=== PATIENT | female | born 1960 | race Hispanic/Latino ===

== ENCOUNTER 2022-03-29 09:38 | Inpatient (IN) | payer MEDICARE, MEDICAID ==
[~2022-03-29] VITALS: Ht 172.7 cm; Wt 97.7 kg
[2022-03-30] MEDS ORDERED: EUTHYROX112 MCG PO (15:25)
[2022-04-06] MEDS ORDERED: MULTI VITAMIN1 EACH PO (15:50)
--- NOTE | 2022-04-07 10:34 | NUR ---
PT TAKEN TO SURGERY, CONNECTED WITH FAMILY IN RM. WILL REMAIN FOR DC-GAVE ENCOURAGEMENT AND DIRECTIONS TO [place]. WILL FOLLOW
--- NOTE | 2022-04-07 12:15 | NUR ---
PT ARRIVED FROM PACU, IN BED. PT DROWSY BUT AROUSABLE TO VOICE, ANSWERS QUESTIONS APPROPRIATELY, SONS AT BEDSIDE AND ASSISTING WITH KYRGYZ TRANSLATION. PT ON 2L NC, CONTINUOUS PULSE OX IN PLACE, O2 SATS 97%, DENIES SOB. BOWEL TONES ACTIVE, DENIES NAUSEA, PROVIDED WITH WATER AND CLEAR LIQUID TRAY. PT DENIES PAIN. CMS INTACT, SPINAL RESOLVED. SCDS IN PLACE. PT WITH VAGINAL PACKING, SCANT AMOUNT OF BLOOD ON PERIPAD. JEAN CATH IN PLACE, DRAINING BRIGHT YELLOW URINE. VSS. IV FLUIDS STARTED LR AT 125ML/HR. PT DENIES OTHER NEEDS AT THIS TIME.
--- NOTE | 2022-04-07 12:29 | NUR ---
04/07/22 1229 Dayanna Wilkes 1127 PT ARRIVED IN PACU SLEEPY. 1130 INTERPRETOR USE TO TRANSLATE. C/O 7/10 RECTAL PAIN. ANESTHESIA GIVING IV TYLENOL. 1142 NO CHANGE IN PAIN LEVEL. FENTANYL 50MCG GIVEN IVP. 1150 TAKING SIPS OF WATER. 1200 PAIN DOWN TO 0/10. 1215 TO ROOM 107 WITH PT'S SONS. BED PLUGGED IN AND REPORT GIVEN TO RN.
--- NOTE | 2022-04-07 15:01 | NUR ---
PT RESTING IN BED. VSS. PT WITH SCANT VAGINAL BLEEDING, PERIPAD IN PLACE. PT DENIES NAUSEA BUT FEELS DIZZY AND SAID THE ROOM IS SPINNING A LITTLE. CALL PLACED TO DR. GARCES, RETURNED CALL AND NEW ORDER FOR SCOPALAMINE PATCH TO BE PLACED AND MECLAZINE 12.5MG PO Q6PRN FOR DIZZINESS.
--- NOTE | 2022-04-07 15:38 | NUR ---
SCOPOLAMINE PATCH AND MECLIZINE GIVEN PER ORDER. PT CONTINUES TO DENY PAIN OR NAUSEA. PT DENIES OTHER NEEDS AT THIS TIME. VSS.
--- NOTE | 2022-04-07 18:16 | NUR ---
PT ATE DINNER, TOLERATED WELL, DENIES NAUSEA. PT CONTINUES TO REPORT MILD DIZZINESS, STATES IT HAS IMPROVED FROM EARLIER BUT DOES NOT FEEL READY TO SIT AT EDGE OF BED, DISCUSSED WITH PT PLAN TO AT LEAST SIT THIS EVENING AND THEM TO AMBULATE IN AM, PT AGREEABLE. PT STATES PAIN IS MILD 2-3/10, GIVEN MOTRIN PER ORDER. PT DENIES OTHER NEEDS AT THIS TIME.
--- NOTE | 2022-04-07 20:24 | NUR ---
COMFORTABLE, FAMILY INROOM
--- NOTE | 2022-04-07 22:32 | NUR ---
RESTING, HOB ELEVATED, ON ROOM AIR, IVF INFUSING AT THIS TIME, F/C PATENT. SCANT AMOUNT OF VAG DRAINAGE PRESENT. VAG PACKING IN PLACE. SCDS IN PLACE FLUIDS AND CALL LIGHT AT BEDSIDE
--- NOTE | 2022-04-08 00:45 | NUR ---
On room air, no distress, IVf infusing. f/c patent
--- NOTE | 2022-04-08 02:16 | NUR ---
Coop with assessment, no c/o pain at thist anna, on room air, awakes easily, f/c patent, draining large amounts of clear urine. scant amount of red vaginal drainage. IVF infusign w/o problems. call light and fluids at bedside
--- NOTE | 2022-04-08 04:51 | NUR ---
Pt on room air, lungs clear, no distress. IVF infusing w/o problems. Scant amount of reddish vaginal discharge, jerad pad in place. vaginal pack in place. f/c patent draining large amount of yellow urine. Will ambulate and F/C to be dc'd this am as per orders. Pt aware of post void residual bladder scanning. procedure explained in Armenian, be stated understanding. Call light and fluids at bedside, no c/o pain or lightheadness this shift.
--- NOTE | 2022-04-08 06:34 | NUR ---
Pt was coop with vitals, was medicated with 2 [place] per vag pain, vag packing still in place, scant amount of reddish drainage. f/c patent. Up to edge of bed did ok, c/o feeling dizzy when walking to br, back to bed, dropped to bed with nurse holding on to pt. repositioned in bed, c/o feeling nauseated, had 500cc+ undigested food emesis plus on gown, was medicated with Zofran. skin cleansed, clean gown and bedding. new peripad in place. no pain meds noted on emesis. Pt declined Levothyroid med, stated that MD had ordered 150mcg and she was taking 125mcg but it was recently changed to 112mcg. Pt in be, hob elevated, ice chips and fluids at bedside, no further c/o lightheadness. alert and oriented, IVF infusing. f/c inplace, will not dc as per nursing judgement, will notify Dr Webber about above info.
--- NOTE | 2022-04-08 07:41 | NUR ---
pt hob elevated, room air, stated she feels better, no further c/o n/v or abd/vag pain. f/c patent. tolerating liquids again, ice chips, cranberry juice and fresh fluids at bedside. Pleasant, cooperative, Latvian speaking only.
--- NOTE | 2022-04-08 08:00 | NUR ---
Spoke with pt through language line interpreture. Pt lives alone in [place]. 4 adult children live near and will assist her. She does not have issues getting in or out of her home. She does not have or need any DME. Pt plans on dc to home, she states concern for her bill, discussed she can contact the hospital when she gets the bill to check if she qualifies for a reduction in cost. She denies financial issues at this time.
--- NOTE | 2022-04-08 08:00 | NUR ---
Spoke with pt through language line interpreture. Pt lives alone in [place]. 4 adult children live near and will assist her. She does not have issues getting in or out of her home. She does not have or need any DME. Pt plans on dc to home, she states concern for her bill, discussed she can contact the hospital when she gets the bill to check if she qualifies for a reduction in cost. She denies financial issues at this time.
--- NOTE | 2022-04-08 08:38 | NUR ---
THIS CNA2 REMOVED PT JEAN CATH @ 4622 PER RN ORDER. NO COMPLICATIONS, PT IS RESTING IN BED. CALL LIGHT IN REACH.
--- NOTE | 2022-04-08 09:14 | NUR ---
TO PT ROOM FOR MEDICATION ADMINISTRATION AND PT ASSESSMENT. INTERPRETTER LINE UTILIZED. CASE MANAGEMENT AT BEDSIDE. PT IS A/O, RESPIRATIONS EVEN AND REGULAR. DENINES PAIN ATT. REFUSED SYNTHROID 112MCG, STATES THAT NOC NURSE GAVE HER HOME MEDICATION THIS A.M.
--- NOTE | 2022-04-08 10:05 | NUR ---
ROUNDED ON PT. PT UP TO BATHROOM WITH PARTS INTERPRETER ASSISTANCE. FAMILY AT BEDSIDE.
--- NOTE | 2022-04-08 10:16 | NUR ---
PT CALLED FOR ASSISTANCE TO THE RESTROOM. PT FAMILY MEMBER IN ROOM TO TRANSLATE. PT STATED SHE FELT A LITTLE DIZZY WHEN SHE STOOD BUT ONLY FOR A MINUTE. SHE AMBULATED W/STBY ASSIST, STEADY ON HER FEET. PT HAD A SMALL VOID. RN BROUGHT BLADDER SCANNER IN FOR A PVR SO THIS CNA2 BLADDER SCANNED AND SHE STILL HAD 387ML IN. SHE STATED SHE DIDNT FEEL LIKE SHE HAD THE URGE TO GO MORE BUT WAS CURIOUS IF HER NOT BEING ABLE TO "SIT ALL THE WAY DOWN ON TOILET" WOULD BE THE PROBLEM. i TOLD HER WE COULD USE THE COMMODE INSTEAD AND SHE AGREED TO TRY THAT NEXT TIME SHE GOT UP TO VOID. PT RESTING IN BED W/FAMILY MEMBER AT BEDSIDE, CALL LIGHT IN REACH.
--- NOTE | 2022-04-08 11:50 | NUR ---
ROUNDED ON PT. PT IS A/O, RESPIRATIONS EVEN AND REGULAR. FAMILY AND PL SQL DEVELOPER AT BEDSIDE.
--- NOTE | 2022-04-08 12:59 | OR ---
[facility] [address] [facility] [place], [place] [address] Signed DATE OF OPERATION: 04/07/2022 SURGEON: Suzi Webber MD HAND COLLATOR: Jose Gómez MD PREOPERATIVE DIAGNOSES: Uterovaginal prolapse, stress incontinence. POSTOPERATIVE DIAGNOSES: Uterovaginal prolapse, stress incontinence. PROCEDURES: Total vaginal hysterectomy, anterior and posterior repair, sling procedure, cystoscopy. ANESTHESIA: Spinal with IV sedation. ESTIMATED BLOOD LOSS: 350 mL. DRAINS: Moses catheter. PACKS: Vaginal. INDICATIONS AND FINDINGS: The patient is a 62-year-old female, who has been having issues with increasing pelvic pressure as well as stress incontinence and desired surgical correction. At the time of surgery, her cervix presented just within the introitus. She had a grade 2 cystocele and a grade 2 rectocele. Her tubes and ovaries appeared normal. DESCRIPTION OF PROCEDURE: The patient was prepped and draped in the dorsal lithotomy position. A weighted speculum was placed and the anterior and posterior lips of the cervix were grasped with single-tooth tenaculum. The cervix was injected with 1% lidocaine with 1:200,000 epinephrine to a volume of 10 mL. The posterior cul-de-sac was then entered and the weighted speculum was switched for the [place] speculum which was placed into the Electronically Signed By: SUZI WEBBER MD 04/08/22 1259 PATIENT NAME: GLORIA PRINCE OPERATIVE REPORT DATE OF : 62 REPORT #: [id number] PHYSICIAN: SUZI WEBBER MD PCP: SASCHA BANKS REPORT IS CONFIDENTIAL AND NOT TO BE RELEASED WITHOUT AUTHORIZATION [facility] [address] [place], [place] [address] Signed posterior cul-de-sac. The uterosacral ligaments were grasped bilaterally using the curved Z clamps, divided with the Sandra scissors and suture ligated with 0 Vicryl. Following this, the vaginal mucosa was circumscribed around the cervix. Sharp dissection was used. Another bite was taken on each side with curved Z clamps, again divided and suture ligated with 0 Vicryl. The anterior cul-de-sac was then entered. Following this, serial bites were taken on each side taking care to incorporate both the anterior and posterior peritoneum on each. This took care of the uterine vessels and the lower aspects of both of the broad ligaments. Each of these were divided and suture ligated with 0 Vicryl. At this point, the remaining broad ligament pedicles could be clamped across. This was done, and specimen divided. These pedicles were tied with free tie of 0 Vicryl followed by suture ligature of 0 Vicryl. This retrieved the specimen. Both of the tubes and ovaries were identified on each side and the ovaries appeared normal, they were quite high and no attempt was made to remove these at this point. Following this, the cuff was inspected. There were multiple bleeding points from the posterior cul-de-sac as well as the anterior cul-de-sac and around the uterine vessels, particularly on the right side. These were controlled with [id number] sutures of 0 Vicryl. Finally, when good hemostasis was noted, the peritoneum was identified and it was closed with a running suture of 3-0 Vicryl. The cuff itself was closed with a running locking stitch of 0 Vicryl. Following this, the anterior repair and sling procedure was begun as the cystocele did not resolve with hysterectomy. The vaginal mucosa was scored in the midline with the knife. This was done from the mid urethra almost to the vaginal cuff. The vaginal mucosa was from the underlying tissue with a combination of blunt and sharp dissection. The dissection was carried out superiorly and laterally to behind the pubic rami on each side. Following this, the obturator notches were identified and the skin incised with a knife. The trocars for the sling were then placed. These were placed at the lowest, most medial point of the obturator notch and brought immediately behind the pubic rami into the upper corner of the vaginal incision. This was done bilaterally. Following this, cystoscopy was done using the 70-degree scope. There was no evidence of any incursion of the trocars into the bladder. She had received IV fluorescein as well so the ureters could be assessed. The left ureter was immediately visualized and seen to be egressing fluorescein stained urine. The right ureter took quite some time to visualize and to see free egress of the urine. This did require a change to the 30-degree scope. Following this, the bladder was drained and the Moses catheter replaced. The perivesical fascia was reapproximated in the midline with interrupted sutures of 0 Vicryl. The sling was then attached to the trocars and brought through the skin incisions. Care was taken to keep appropriate tension. At that point, the sling cover was removed and the sling was placed in the mid urethra. The excess sling was trimmed at the skin. Arpit-Seal was placed at the upper lateral aspects of the vaginal incision as there was some bleeding in these areas which were not accessible. The vaginal mucosa was then trimmed and the incision closed with a Electronically Signed By: SUZI WEBBER MD 04/08/22 0349 PATIENT NAME: GLORIA PRINCE OPERATIVE REPORT DATE OF : 62 REPORT #: [id number] PHYSICIAN: SUZI WEBBER MD PCP: SASCHA BANKS REPORT IS CONFIDENTIAL AND NOT TO BE RELEASED WITHOUT AUTHORIZATION [facility] [address] [place], [place] [address] Signed running suture of 2-0 Vicryl. The rectocele repair was then begun. A triangle of tissue was removed from the perineal body. The vaginal mucosa was then undermined and incised in the midline to the apex of the vagina. The vaginal mucosa was from the underlying tissue with a combination of blunt and sharp dissection. The remaining perirectal fascial type tissue was reapproximated in the center with interrupted sutures of 0-Vicryl. A rectal examination was done assuring no sutures compromised the rectal lumen. The cuff itself appeared well suspended at this point, so no attempt was made to do a cuff suspension. FloSeal was placed in the posterior repair near those upper angles to aid in hemostasis. The vaginal mucosa was then trimmed and the vaginal mucosa was closed in a running locking stitch from the apex of the vagina to the hymenal ring. Multiple [id number]-gz-[id number] sutures were required in the midportion for control of bleeding. The perineum was reapproximated with interrupted sutures of 0 Vicryl. The posterior fourchette was recreated with a running suture of 2-0 Vicryl and the skin of the perineum was closed with interrupted sutures of 2-0 Vicryl placed subcuticularly. Inspection of the vault showed good length and caliber. Good hemostasis was noted. The vaginal canal was packed with Premarin-coated gauze. The skin incisions for the sling were closed with interrupted sutures of 3-0 Vicryl Rapide. All sponge and needle counts were correct. She tolerated the procedure well and was taken to the recovery room in good condition. Suzi Webber MD PJW/MODL /[id number] cc: Jose Gómez MD Copies: JOSE GÓMEZ MD ~ Electronically Signed By: SUZI WEBBER MD 04/08/22 1259 PATIENT NAME: GLORIA PRINCE OPERATIVE REPORT DATE OF : 62 REPORT #: [id number] PHYSICIAN: SUZI WEBBER MD PCP: SASCHA BANKS REPORT IS CONFIDENTIAL AND NOT TO BE RELEASED WITHOUT AUTHORIZATION
--- NOTE | 2022-04-08 13:08 | NUR ---
PT ALERT, SONS AT BS.INQUIRED WITH PT AND SONS IF SHE WOULD LIKE THE DOT NET DEVELOPER TO VISIT AFTER MASS TODAY. PT SAID YES, AND WOULD LIKE PRAYER. INFORMED FR YAO, HE WILL FOLLOW. GAVE BLESSING
--- NOTE | 2022-04-08 13:28 | NUR ---
TO PT ROOM FOR MEDICATION ADMINISTRATION. PT AMBULATED IN HALLWAY X1 LAP. TOLERATED WELL. DENIES PAIN ATT. FAMILY AT BEDSIDE. CALL LIGHT WITHIN REACH.
--- NOTE | 2022-04-08 14:39 | NUR ---
ROUNDED ON PT. ASSESSMENT COMPLETED. PT DENIES PAIN. RESTING WITH EYES CLOSED ATT. DISCUSSED CHECKING PAD AND BLEEDING NEXT TIME SHE GETS UP TO VOID.
--- NOTE | 2022-04-08 15:05 | NUR ---
MED REC COMPLETE
--- NOTE | 2022-04-08 15:58 | NUR ---
ROUNDED ON PT. PT A/O, RESPIRATIONS EVEN AND REGULAR. STATES BLEEDING IS MINIMAL. UP TO BATHROOM TO VOID. VOIDED 550ML. CALL LIGHT WITHIN REACH. FAMILY AT BEDSIDE.
--- NOTE | 2022-04-08 16:00 | NUR ---
PT AMBULATED IN BUCKNER X1 LAP. PT TOLERATED WELL. FAMILY AT BEDSIDE.
--- NOTE | 2022-04-08 18:43 | NUR ---
ROUNDED ON PT. PT IS A/O, RESPIRATIONS EVEN AND REGULAR. DENIES NEEDS OR COMPLAINTS ATT. FAMILY AT BEDSIDE.
--- NOTE | 2022-04-08 20:56 | NUR ---
pt in bed, denies c/o pain. on room air, clear lungs, abd soft, tender, small amount of dark red vaginal drainage. jerad pad in place. scds on-off at pts requets. sl LW patent. took meds w/o problems, no c/o lightheadness. coop. all explained in Irish, stated understanding. taking fluids w/o problems. call light and fluids at bedside. family roomin in
--- NOTE | 2022-04-08 22:56 | NUR ---
SCHEDULED MOTRIN GIVEN PER REQUEST OF PRIMARY RN MARY, pt RATES PAIN 2/10 IN MICHELLE AREA. pt UP TO VOID, IN BATHROOM. ANAIS CISNEROS REMAINS IN ROOM WITH pt FOR SAFETY.
--- NOTE | 2022-04-09 00:49 | NUR ---
resting, eyes closed, no s/sx distress hob elvated to comfort, on room air. call light and fluidsa t bedside, family in room
--- NOTE | 2022-04-09 01:46 | NUR ---
Pt awakes easily, took meds w/o problems, comfortable, denies c/o abd/vag pain. on room air, call light at hands reach. family rooming in
--- NOTE | 2022-04-09 04:37 | NUR ---
Pt on room air, no s/sx distress, awakes easily, voiding QS, scant amount of vaginal dark red drainage, changes paeri pad by self. no further c/o lightheadness. call light and fluids at bedside
--- NOTE | 2022-04-09 08:00 | NUR ---
Spoke with pt. She speaks limited swazi, but states she is doing well. Denies needs,plans on dc to home today. Son in room.
--- NOTE | 2022-04-09 08:11 | NUR ---
PATIENT UP IN BED SITTING WITH SON. AM CARES COMPLETED. NO OTHER NEEDS AT THIS TIME. CALL LIGHT WITHIN REACH.
--- NOTE | 2022-04-09 08:19 | NUR ---
PT ASSESSMENT COMPLETED. URINE OUTPUT REMAINS ADEQUATE. REPORTS 0/10 PAIN. SELF CHANGES MICHELLE PAD. STATES SHE JUST HAS SCANT AMOUNT OF BLEEDING.
--- NOTE | 2022-04-09 09:58 | NUR ---
PATIENT SITTING UP IN BED AFTER MEAL. VITALS AND I/O'S COMPLETED. NO OTHER NEEDS AT THIS TIME. INDEPENDENT IN ROOM. CALL LIGHT WITHIN REACH.
[2022-04-09] MEDS ORDERED: HYDROCODON-ACE1 EA10 PO (10:39)
[2022-04-09] MEDS ORDERED: IBU800 MG PO (10:39)
[2022-04-09] MEDS ORDERED: KONDREMUL2.5 ML/5 M PO (10:40)
[2022-04-09] MEDS ORDERED: SENOKOT-S TABL1 EACH PO (10:40)
--- NOTE | 2022-04-09 11:15 | NUR ---
PT DISCHARGED. IV REMOVED. CATHETER INTACT.
--- NOTE | 2022-04-09 17:04 | PATH ---
[facility] [address] [place], [place] [address] Signed SPECIMEN(S): A UTERUS, CERVIX SPECIMEN SOURCE: A. UTERUS, CERVIX CLINICAL HISTORY: Stress incontinence, uterovaginal prolapse. FINAL PATHOLOGIC DIAGNOSIS: Uterus and cervix: - Weakly proliferative endometrium, negative for hyperplasia or atypia. - Benign myometrial leiomyoma. - Benign endocervix and ectocervix. JVR:keyonna:[id number] MICROSCOPIC EXAMINATION: Histologic sections of all submitted blocks are examined by light microscopy. These findings, together with the gross examination, support the pathologic diagnosis. GROSS DESCRIPTION: The specimen, labeled "RM, A," and designated on the requisition "uterus, cervix," is received in formalin and consists of a uterus (85 grams, 6.0 cm superior to inferior, 4.8 cm cornu to cornu, 4.2 cm anterior to posterior), and attached cervix (3.0 cm in length by 4.2 cm in diameter) with pink-dahl wrinkled cervical mucosa and patent slit-shaped os (1.5 x 0.3 cm). The uterine serosa is pink-dahl and smooth. The cervix is opened to reveal a pink-dahl unremarkable endocervix (endocervical canal: 2.5 cm in length by 1.1 cm in diameter). Sectioning of the uterus reveals an endometrial cavity (4.5 cm superior to inferior by 3.0 cm cornu to cornu) with a red-pink endometrial lining that measures less than 0.1 cm in thickness. The myometrium is trabeculated with one white-dahl well-circumscribed intramural nodule (0.8 cm in greatest dimension). [place] sections are submitted as follows: (A1) Cervix (A2) Endomyometrium (A3) Myometrial nodule AC (under the direct supervision of a pathologist) PATIENT NAME: GLORIA PRINCE PATHOLOGY DATE OF : 62 REPORT #: [id number] PHYSICIAN: RISA RAMIREZ PCP: SASCHA BANKS REPORT IS CONFIDENTIAL AND NOT TO BE RELEASED WITHOUT AUTHORIZATION [facility] [address] [facility] [place], [place] [address] Signed The Gross Description was prepared using a voice recognition system. The report was reviewed for accuracy; however, sound-alike word errors, addition and/or deletions may occur. If there is any question about this report, please contact Client Services. PERFORMING LABORATORY: The technical component was performed by [facility], [address] [place] [id number] (CLIA# [id number]). Professional interpretation was performed by [facility], [address] [place] [id number] (CLIA#: [id number]). Diagnostician: Lonny Fulton MD Pathologist Electronically Signed 04/09/2022 Copies: ~ PATIENT NAME: GLORIA PRINCE PATHOLOGY DATE OF : 62 REPORT #: [id number] PHYSICIAN: RISA RAMIREZ PCP: SASCHA BANKS REPORT IS CONFIDENTIAL AND NOT TO BE RELEASED WITHOUT AUTHORIZATION
== END 2022-04-09 11:15 | disposition home or self-care (01) | DRG 743 ==
LOC: MS 04-07 05:53 → DSVR 04-07 05:53 → MS 04-07 07:30
PROVIDERS: ADMIT Obstetrics & Gynecology; ATTEND Obstetrics & Gynecology
PROC: 0UT98ZZ Resection of Uterus, Via Natural or Artificial Opening Endoscopic (ICD-10-PCS; principal; 2022-04-07 07:30)
PROC: 0TSD0ZZ Reposition Urethra, Open Approach (ICD-10-PCS; 2022-04-07 07:30)
PROC: 0JQC0ZZ Repair Pelvic Region Subcutaneous Tissue and Fascia, Open Approach (ICD-10-PCS; 2022-04-07 07:30)
PROC: 0JQC0ZZ Repair Pelvic Region Subcutaneous Tissue and Fascia, Open Approach (ICD-10-PCS; 2022-04-07 07:30)
DX: N81.2 Incomplete uterovaginal prolapse (principal); N39.3 Stress incontinence (female) (male); Z79.899 Other long term (current) drug therapy; Z98.890 Other specified postprocedural states; Z98.51 Tubal ligation status
CPT/HCPCS: 00944; 36415; 80048; 85025; A9270; J0131; J0690; J1644; J2001; J2250; J2274; J2405; J2704; J3010; J7121

== ENCOUNTER 2022-08-06 08:58 | Emergency (ER) | payer MEDICARE, MEDICAID ==
[~2022-08-06] VITALS: Ht 172.7 cm; Wt 97.5 kg
[~2022-08-06 08:58] MED LIST: EUTHYROX112 MCG PO; HYDROCODON-ACE1 EA10 PO; IBU800 MG PO; KONDREMUL2.5 ML/5 M PO; MULTI VITAMIN1 EACH PO; SENOKOT-S TABL1 EACH PO
[2022-08-06] MEDS ORDERED: CEPHALEXIN500 M1 PO (10:58)
== END 2022-08-06 11:45 | disposition home or self-care (01) ==
LOC: ED 08:58
DX: L03.313 Cellulitis of chest wall (principal); L72.3 Sebaceous cyst; E03.9 Hypothyroidism, unspecified; Z79.899 Other long term (current) drug therapy
CPT/HCPCS: 99282